=== PATIENT | female | born 1945 | race Caucasian/White ===

== ENCOUNTER → 2016-07-05 | Outpatient (CLI) | payer MEDICARE, OTHER | DX: J40 Bronchitis, not specified as acute or chronic (principal) | CPT/HCPCS: 36415; 86615 ==

== ENCOUNTER → 2021-12-10 | Outpatient (CLI) | payer MEDICARE, OTHER ==
[~2021-12-10] VITALS: Ht 160 cm; Wt 111.1 kg
[~2021-12-10] MED LIST: ACTOS30 MG PO; EVISTA60 MG PO; GLUCOVANCE 5-51 EACH PO; MOBIC7.5 MG PO; PRINIVIL5 MG PO; TOPROL XL25 MG PO; TRULICITY0.75 MG/0. SQ; VENTOLIN HFA 66.7 GM INH; ZOCOR40 MG PO
== END ==
LOC: EROP 13:00
DX: Z23 Encounter for immunization (principal); U07.1 COVID-19
CPT/HCPCS: M0222; Q0222